=== PATIENT | female | born 1955 | race Caucasian/White ===

== ENCOUNTER 2025-04-21 06:13 | Emergency (ER) | payer OTHER ==
[2025-04-21] MEDS: Acetaminophen/HYDROcodone 325-5 MG Tab PO ONE (09:02)
== END 2025-04-21 09:14 | disposition home or self-care (01) ==
LOC: MW.ED 06:13
DX: M75.32 Calcific tendinitis of left shoulder (principal); I10 Essential (primary) hypertension; Z79.899 Other long term (current) drug therapy
CPT/HCPCS: 73030; 99283; A9270; 99284